=== PATIENT | female | born 1960 | race Caucasian/White ===

== ENCOUNTER 2021-02-01 18:42 | Emergency (ER) | payer OTHER, SELFPAY ==
[2021-02-01 19:07] VITALS: BP 152/79; PULSE 89; RESP 18; TEMP 36.4; O2SAT 100
--- NOTE | 2021-02-01 19:27 | ED.FEMALEGU ---
HPI - Female Genitourinary General Chief complaint: Urogenital-Female Stated complaint: Frequently urinating,pain while urinating Source: patient and RN notes reviewed Limitations: no limitations History of Present Illness HPI Narrative: The patient, previously mostly healthy on routine meds,, presents with urinary symptoms. Patient states she has shorter couple day history of [place] urinary frequency, urgency and dysuria like prior UTI. No fever, vomiting/diarrhea, hematuria, abdominal pain, vaginal discharge, flank pain-she does have chronic LBP. Symptoms are mild most noticeable with micturition Related Data Home Medications Medication Instructions Recorded Confirmed estradiol 1 patch WEEKLY 03/04/19 03/18/19 progesterone micronized 100 mg DAILY 03/04/19 03/18/19 amitriptyline 25 mg PO HS 03/18/19 03/18/19 anastrozole mg 02/01/21 02/01/21 diltiazem HCl PO 02/01/21 Allergies Allergy/AdvReac Type Severity Reaction Status Date / Time No Known Allergies Allergy Verified 02/01/21 19:24 Review of Systems Review of Systems: General/Constitutional: No weight loss,fever Eyes: N0: Redness,discharge Ears/Nose/Throat: No: Epistaxis,ear discharge Respiratory: Denies: Hemoptysis Gastrointestinal: No Vomiting, Bleeding-rectal Skin: No Lumps, eruption Neurologic: No Focal Weakness,Sz Hematologic: Denies: Petechiae/Purpura Psychiatric: No: Suicida ideationl All Other Systems: Reviewed and Negative [facility] Past Medical History Medical History (Updated 02/02/21 @ 00:00 by Sabine Roa) Fibromyalgia Inguinal hernia Surgical History Surgical History (Updated 03/18/19 @ 10:29 by KENTRELL Cueva) Hx of cholecystectomy Hx of tonsillectomy Social History Social History (Updated 03/18/19 @ 10:30 by KENTRELL Cueva) Smoking status: Never smoker Alcohol intake: current Alcohol use details: Socially Substance use: never Gender identity (if verbalized by the patient): Female Comments At time of signature, agree with nursing past medical, surgical, social and family history. There is no relevant family history pertinent to the presenting complaint Exam Narrative: General Appearance: Well appearing, No distress EYE: PERRLA, Conjunctiva clear Ears: External ear normal Nose: Normal nose Mouth/Throat: Normal appearing, Normal lips Neck: Supple Respiratory: Airway patent, No respiratory distress Cardiovascular: RRR Abdomen: Soft, Non-tender, No massess, Musculoskeletal: Full ROM Skin: Warm, Dry Neurological: A&O x3, CN II-X intact Psychiatric: Normal mood, Normal affect Course Vital Signs Vital signs: Vital Signs Temperature 97.6 F 02/01/21 19:07 Pulse Rate 89 02/01/21 19:07 Respiratory Rate 18 02/01/21 19:07 Blood Pressure 152/79 H 02/01/21 19:07 Pulse Oximetry 100 02/01/21 19:07 Temperature 97.6 F 02/01/21 19:07 Pulse Rate 89 02/01/21 19:07 Respiratory Rate 18 02/01/21 19:07 Blood Pressure 152/79 H 02/01/21 19:07 Pulse Oximetry 100 02/01/21 19:07 MDM - Female Genitourinary Lab Data Labs: Urine Glucose Negative Reference Range: Negative Urine Bilirubin Negative Reference Range: Negative Urine Ketone Negative Reference Range: Negative Urine Specific [place] 1.010 Reference Range:1.001-1.035 Urine Blood 1+ Reference Range: Negative * * Urine pH 5.5 Reference Range: 5.0-9.0 Urine Protein Negative Reference Rang
== END 2021-02-01 19:39 | disposition home or self-care (01) ==
PROVIDERS: Emergency Provider Emergency Medicine; PCP Internal Medicine
DX: N39.0 Urinary tract infection, site not specified (principal); M79.7 Fibromyalgia
CPT/HCPCS: 81003; 87077; 87086; 87088; 99213; G0463

== ENCOUNTER 2022-07-03 14:22 | Emergency (ER) | payer OTHER, SELFPAY ==
[2022-07-03 14:30] VITALS: BP 143/68; PULSE 90; RESP 18; TEMP 36.2; O2SAT 100
--- NOTE | 2022-07-03 14:30 | ED.URI ---
HPI - URI/Sore Throat General Chief Complaint: Upper Respiratory Infection Stated Complaint: Congestion,Runny Nose,Cough,Loss of Voice Time Seen by Provider: 07/03/22 14:31 Source: patient, RN notes reviewed and old records reviewed Mode of arrival: ambulatory Limitations: no limitations History of Present Illness HPI Narrative: 66-year-old female presents to the [facility] with complaints of congestion, runny nose, scratchy throat and body aches. Symptoms started over a week ago. Body aches have improved. Is last few days. Has taken ibuprofen, no other treatment prior to Has a history of breast cancer Onset (ago): week(s) (1+) Related Data Home Medications Medication Instructions Recorded Confirmed estradiol 0.05 mg/24 hr semiweekly 1 patch WEEKLY 03/04/19 07/03/22 transdermal patch progesterone micronized 100 mg 100 mg DAILY 03/04/19 07/03/22 capsule amitriptyline 25 mg tablet 25 mg PO HS 03/18/19 07/03/22 anastrozole 1 mg tablet 1 mg PO DAILY 02/01/21 07/03/22 diltiazem HCl 120 mg 120 mg PO DAILY 02/01/21 07/03/22 capsule,extended release 24 hr Allergies Allergy/AdvReac Type Severity Reaction Status Date / Time No Known Allergies Allergy Verified 07/03/22 14:34 Review of Systems Review of Systems: All systems reviewed & are unremarkable except as noted in HPI and below Constitutional: Constitutional: Reports no additional constitutional complaints Eyes: Eyes: Reports no additional eye complaints ENT: Reports as per HPI Cardiovascular: Cardiovascular: Reports no additional cardiovascular complaints, Denies chest pain and Denies dyspnea Respiratory: Respiratory: Reports no additional respiratory complaints, Denies chest congestion, Denies cough and Denies dyspnea Gastrointestinal: Gastrointestinal: Reports no additional gastrointestinal complaints, Denies abdominal pain, Denies nausea and Denies vomiting Musculoskeletal: Musculoskeletal: Reports no additional musculoskeletal complaints Integumentary/Breasts: Skin/Breast: Reports system reviewed and no additional complaints, except as docu Neurologic: Reports system reviewed and no additional complaints, except as documented Psychiatric: Psychiatric: Reports no additional psychiatric complaints Allergic/Immunologic: Allergic/Immunologic: Reports no additional allergic/immunologic complaints PMFSH Past Medical History Medical History (Updated 07/03/22 @ 14:44 by Mary Lopez APRN) Breast cancer Fibromyalgia Inguinal hernia Surgical History Surgical History Hx of cholecystectomy Hx of tonsillectomy Social History Social History Smoking status: Never smoker Alcohol intake: current Alcohol use details: Socially Substance use: never Gender identity (if verbalized by the patient): Female Comments At the time of my signature, I reviewed and agree with the nursing past medical, surgical, social, and family history. There is no relevant family history pertinent to the patient complaint. Exam Const: General: cooperative, healthy appearing, comfortable, no acute distress, well developed, alert and well nourished Nutritional Appearance: well nourished Orientation/consciousness: patient oriented x3 Limitations: no limitations HENMT: Head: normal to inspection Ears: hearing grossly normal bilaterally and external ears normal Face/Nose/Sinus: Normal external nose present, Normal nares present, Normal nasal mucous membranes and turbinates present and normal facial exam Face and sinus: normal facial exam Mouth: Yes Normal oral and palatal mucosa present, Yes lip normal and Yes moist mucous membranes Throat: posterior oropharynx normal and uvula midline Eyes: General: appearance normal, both eyes and all related structures Alignment and Position: alignment normal Periorbital: periorbital findings normal Conjunctivae: con
== END 2022-07-03 14:45 | disposition home or self-care (01) ==
PROVIDERS: Emergency Provider Nurse Practitioner
DX: J04.0 Acute laryngitis (principal); R09.82 Postnasal drip; J06.9 Acute upper respiratory infection, unspecified; J02.9 Acute pharyngitis, unspecified; M79.7 Fibromyalgia; Z85.3 Personal history of malignant neoplasm of breast
CPT/HCPCS: 99213; G0463

== ENCOUNTER 2024-02-29 14:44 | Emergency (ER) | payer OTHER, SELFPAY ==
[2024-02-29 15:27] LABS: EDUAAPPEAR Cloudy; EDUABILI Negative (Negative); EDUABLOOD Negative (Negative); EDUACOLOR1 Yellow; EDUAGLUCOSE Negative (Negative); EDUAKETONE 1+ (Negative); EDUALEUKO 1+ (Negative); EDUANITRATE Positive (Negative); EDUAPROTEIN 1+ (Negative); EDUASPGRAVITY 1.025; EDUAUROBILI 0.2
[2024-02-29 15:38] VITALS: BP 146/58; PULSE 96; RESP 16; TEMP 36.3; O2SAT 98
--- NOTE | 2024-02-29 16:28 | ED_ITS ---
HPI - Female Genitourinary General Chief complaint: Urogenital-Female Stated complaint: Possible UTI Time Seen by Provider: 02/29/24 16:28 Source: patient and RN notes reviewed Mode of arrival: ambulatory Limitations: no limitations History of Present Illness HPI Narrative: 63-year-old female presented for complaint of foul-smelling cloudy urine x2 days. States a few days prior to these symptoms, she had diarrhea and vomiting. Denies dysuria, frequency, hematuria, nausea, vomiting, abdominal pain, flank pain, constipation, diarrhea, fevers or chills. Related Data Home Medications ?Medication ?Instructions ?Recorded ?Confirmed ?Last Taken ?Type estradiol 0.05 mg/24 hr semiweekly 1 patch WEEKLY 03/04/19 07/03/22 Unknown History transdermal patch progesterone micronized 100 mg 100 mg DAILY 03/04/19 07/03/22 Unknown History capsule amitriptyline 25 mg tablet 25 mg PO HS 03/18/19 07/03/22 Unknown History anastrozole 1 mg tablet 1 mg PO DAILY 02/01/21 07/03/22 Unknown History diltiazem HCl 120 mg 120 mg PO DAILY 02/01/21 07/03/22 Unknown History capsule,extended release 24 hr Allergies Allergy/AdvReac Type Severity Reaction Status Date / Time No Known Allergies Allergy Verified 02/29/24 16:27 Review of Systems Review of Systems: per [facility] Past Medical History Medical History Breast cancer Inguinal hernia Fibromyalgia Surgical History Surgical History Hx of tonsillectomy Hx of cholecystectomy Social History Social History Smoking status: Never smoker Alcohol intake: current Alcohol use details: Socially Substance use: never Gender identity (if verbalized by the patient): Female Comments At time of signature, I have reviewed and agree with nursing past medical, surgical, social and family history unless otherwise noted. Please see nursing chart for further information. There is no relevant family history pertinent to the presenting complaint Exam Narrative: GENERAL: Well-appearing ENT: Mucous membranes pink and moist. NECK: Normal AROM. Supple. CHEST: No respiratory distress. Clear to auscultation. HEART: Regular rate and rhythm. ABDOMEN: Soft, nontender, nondistended, normal active bowel sounds. No CVA tenderness NEURO: No focal deficits. Alert and oriented x3. Gait steady. PSYCH: Normal affect. Course Course Emergency Course: Patient is aware of diagnosis, understands and agrees to treatment plan. Anticipatory guidance given. Patient agrees to follow-up as directed and is aware of reasons to seek care at the emergency department. Portions of this record may have been created with voice recognition software Level of Care: Express Care Visit Vital Signs Vital signs: Reviewed MDM - Female Genitourinary MDM Narrative Medical decision making narrative: Discussed physical exam findings and urine result. Advised supportive measures and signs/symptoms to go to the ER. Pt is appropriate for outpt treatment and f/u. Differential Diagnosis Differential diagnosis: Likely urinary tract infection, cystitis and other Lab Data Labs: Lab Results 02/29/24 Range/Units 15:09 POC Urine Color Yellow POC Urine Clarity Cloudy POC Urine pH 6.0 POC Ur Specif [place] 1.025 POC Urine Protein 1+ (Negative) POC Ur Glucose (UA) Negative (Negative) POC Urine Ketones 1+ (Negative) POC Urine Blood Negative (Negative) POC Urine Nitrite Positive (Negative) POC Urine Bilirubin Negative (Negative) POC Urine Urobilinogen 0.2 POC U Leukocyte Esteras 1+ (Negative) Discharge Plan Discharge Clinical Impression: Urinary tract infection Patient Disposition: Home, Self-Care Condition: Stable Instructions: Antibiotic Form, Urinary Tract Infection in Women (ED) Additional Instructions: Take the antibiotic as prescribed The urine will be sent of for a culture to identify what type of bacteria is causing your infection. If the culture shows that the antibiotic will not get rid of your infection, you will be notified and a new antibiotic will be called in for you. Increase water intake you will need to follow up with your PCP, call to schedule an appointment. Go to the ER for any worsening symptoms or concerns Patient Language: [place] Prescriptions: New nitrofurantoin monohyd/m-cryst [Macrobid] 100 mg capsule 100 mg PO Q12H 5 Days Qty: 10 0RF Rx Instructions: must administer with a meal/food No Action estradiol 0.05 mg/24 hr patch semiweekly 1 patch WEEKLY progesterone micronized 100 mg capsule 100 mg DAILY amitriptyline 25 mg Tablet 25 mg PO HS anastrozole 1 mg tablet 1 mg PO DAILY diltiazem HCl 120 mg capsule,extended release 24hr 120 mg PO DAILY methylprednisolone [Medrol (Maxi)] 4 mg tablets,dose pack See Rx Instructions PO .COMPLEX Qty: 21 0RF Rx Instructions: orally per package directions amoxicillin-pot clavulanate 875-125 mg tablet 1 tablet PO Q12H Qty: 14 0RF Follow-up/Referrals: Andrea,Shani Veliz [Other]
== END 2024-02-29 16:36 | disposition home or self-care (01) ==
PROVIDERS: Emergency Provider Nurse Practitioner Family
DX: N39.0 Urinary tract infection, site not specified (principal); Z85.3 Personal history of malignant neoplasm of breast
CPT/HCPCS: 81003; 87077; 87086; 87186; 99213; G0463